=== PATIENT | male | born 1955 | race Caucasian/White ===

== ENCOUNTER 2020-04-24 10:42 | Day surgery (SDC) | payer MEDICARE ==
[~2020-04-24] VITALS: Ht 182.9 cm; Wt 127.3 kg
[2020-04-24 11:14] VITALS: BP 153/88
[2020-04-24] MEDS ORDERED: DIPHENHYDRAMINE 50 MG/ML, 1ML IVPush ONE (11:30)
[2020-04-24] MEDS ORDERED: FLUT1BLS INH (11:34)
[2020-04-24] MEDS ORDERED: PANT40TA5 PO (11:34)
[2020-04-24] MEDS ORDERED: FLUT9.9S INH (11:34)
[2020-04-24] MEDS ORDERED: MYCO500T3 PO (11:34)
[2020-04-24] MEDS ORDERED: PRED20TA PO (11:34)
[2020-04-24] MEDS ORDERED: Vitamin B6 PO (11:34)
[2020-04-24] MEDS ORDERED: FINA5TAB4 PO (11:34)
[2020-04-24] MEDS ORDERED: FURO-92 PO (11:34)
[2020-04-24] MEDS ORDERED: MULT-658 PO (11:34)
[2020-04-24] MEDS ORDERED: OLME40TA12 PO (11:34)
[2020-04-24] MEDS ORDERED: EZET10TA70 PO (11:34)
[2020-04-24] MEDS ORDERED: FLUD0.1T PO (11:34)
[2020-04-24] MEDS ORDERED: CHOL10003 PO (11:34)
[2020-04-24] MEDS ORDERED: Magnesium PO (11:34)
[2020-04-24] MEDS ORDERED: FOLI0.8T2 PO (11:34)
[2020-04-24] MEDS ORDERED: ALBU8.5H8 INH (11:34)
[2020-04-24] MEDS ORDERED: PYRI60TA PO (11:34)
[2020-04-24] MEDS ORDERED: POTA20TA14 PO (11:34)
[2020-04-24] MEDS ORDERED: CYAN250013 PO (11:34)
[2020-04-24] MEDS ORDERED: CALC-769 PO (11:34)
[2020-04-24] MEDS ORDERED: MIDAZOLAM 1 MG/ML, 2ML ONE ×2 (12:22→13:36)
[2020-04-24] MEDS ORDERED: FENTANYL PF 100 MCG/2ML ONE ×2 (12:23→13:36)
[2020-04-24] MEDS ORDERED: LIDOCAINE-MPF 1%, 5ML ONE (12:23)
[2020-04-24] MEDS ORDERED: DIPHENHYDRAMINE 50 MG/ML, 1ML ONE (12:29)
[2020-04-24 15:14] VITALS: BP 142/63
[2020-04-25] MEDS ORDERED: ASPI-515 PO (13:57)
[2020-04-27] MEDS ORDERED: RIVA1TAB PO (10:11)
== END 2020-04-24 16:31 | disposition home or self-care (01) ==
LOC: CACL 10:42
PROVIDERS: ATTEND Internal Medicine Cardiovascular Disease
DX: I27.20 Pulmonary hypertension, unspecified (principal); I12.9 Hypertensive chronic kidney disease with stage 1 through stage 4 chronic kidney disease, or unspecified chronic kidney disease; N18.1 Chronic kidney disease, stage 1; G70.00 Myasthenia gravis without (acute) exacerbation; G47.30 Sleep apnea, unspecified; E66.3 Overweight; Z68.38 Body mass index [BMI] 38.0-38.9, adult; Z79.899 Other long term (current) drug therapy; Z87.891 Personal history of nicotine dependence; Z88.0 Allergy status to penicillin; Z86.718 Personal history of other venous thrombosis and embolism; Z86.711 Personal history of pulmonary embolism
CPT/HCPCS: 36415; 83880; 93451; 99156; 99157; C1894; J1200; J2250; J3010

== ENCOUNTER 2020-09-19 12:47 | Outpatient (CLI) | payer MEDICARE ==
[~2020-09-19 12:47] MED LIST: ALBU8.5H8 INH; ASPI-515 PO; CALC-769 PO; CHOL10003 PO; CYAN250013 PO; DILT30TA27 PO; EZET10TA70 PO; FINA5TAB4 PO; FLUD0.1T PO; FLUT1BLS INH; FLUT9.9S INH; FOLI0.8T2 PO; FURO-92 PO; MULT-658 PO; MYCO500T3 PO; Magnesium PO; OLME40TA12 PO; PANT40TA6 PO; POTA20TA14 PO; PRED20TA PO; PYRI60TA PO; RIVA15TA PO; RIVA1TAB PO; Vitamin B6 PO
== END 2020-09-19 23:59 | disposition home or self-care (01) ==
LOC: RAD 12:47
PROVIDERS: ATTEND Internal Medicine Cardiovascular Disease
DX: I27.24 Chronic thromboembolic pulmonary hypertension (principal)
CPT/HCPCS: 71045; 78582; A9540; A9558

== ENCOUNTER → 2020-10-23 | Outpatient (CLI) | payer MEDICARE ==
[~2020-10-23] MED LIST changes: -ASPI-515 PO; +ASPI-963 PO
== END | disposition home or self-care (01) ==
LOC: CVU 10:20
PROVIDERS: ATTEND Internal Medicine Cardiovascular Disease
DX: I08.1 Rheumatic disorders of both mitral and tricuspid valves (principal); I11.9 Hypertensive heart disease without heart failure; I27.24 Chronic thromboembolic pulmonary hypertension
CPT/HCPCS: 93306